=== PATIENT | male | born 1950 | race Caucasian/White ===

== ENCOUNTER 2018-08-12 10:55 | Inpatient (IN) | payer MEDICARE, OTHER ==
[~2018-08-12 10:55] MED LIST: BACITRACIN 50,000 UNIT VIAL IR ONE; DEXAMETHASONE SODIUM PHOSPHATE 10 MG/ML VIAL ONE; FENTANYL CITRATE/PF 250 MCG/5 ML INJ. ONE; GLYCOPYRROLATE 0.2 MG/1 ML 1 ML ONE; HETASTARCH 6% IV ONE; HYDROmorphone HCL/PF 1 MG/ML VIAL ONE; LACTATED RINGERS 1,000 ML IV ONE; LACTATED RINGERS 1,000 ML IV.SOLN IV ONE; LIDOCAINE HCL 2% PF 100MG/5ML VIAL IJ ONE; MIDAZOLAM HCL 2 MG/2 ML VIAL ONE; ONDANSETRON HCL/PF 4 MG/ 2ML VIAL ONE; PHENYLEPHRINE HCL 10 MG/1 ML ONE; PROPOFOL 200 MG/20 ML VIAL IV ONE; ROCURONIUM BROMIDE 10 MG/ML 5ML VIAL ONE; SEVOFLURANE 250 ML LIQUID IH ONE; SODIUM CHLORIDE IV ONE; SUGAMMADEX SODIUM 200 MG/2 ML VIAL IV ONE; ceFAZolin SODIUM 1 GM VIAL ONE; ePHEDrine SULFATE 50 MG/1 ML IVP ONE; fentaNYL CITRATE/PF 100 MCG/2 ML INJ. ONE
[2018-08-12] MEDS ORDERED: HYDROmorphone HCL 2 MG TABLET PO PRN (12:21)
[2018-08-12] MEDS ORDERED: PROMETHAZINE HCL 25 MG in 0.9 % SODIUM CHLORIDE 50 ML IV PRN (12:21)
[2018-08-12] MEDS ORDERED: diphenhydrAMINE HCL 25 MG TABLET PO PRN (12:21)
[2018-08-12] MEDS ORDERED: DIAZEPAM 5 MG TABLET PO PRN (12:21)
[2018-08-12] MEDS ORDERED: ONDANSETRON HCL/PF 4 MG/ 2ML VIAL IVP PRN (12:21)
[2018-08-12 12:36] VITALS: BMI 28.8
--- NOTE | 2018-08-12 12:37 | History and Physical Report ---
History of Present Illnes - History of Present Illness Reason for Visit: Back pain History of Present Illness: Patient underwent Lumbar TDR of L5/S1 today. He has tried numerous other pain relief modalities including discetomy, laminectomy, and RFA as well as pain meds. Surgery went as expected using the anterior approach. Patient feels decent at this time. Tolerating ice chips and asking for pain medicine. Has walked with physical therapy. - Past Medical History Cardiac: HTN, Other (Echo - EF 55% recently.; AAA 3 cm 07-31-18) Gastrointestinal: GERD, Other (H/o colitis) Psych: Anxiety Musculoskeletal: Chronic low back pain, Osteoarthritis - Past Surgical History Past Surgical History: Appendectomy, Other (Cardiac Cath; 2007 L4-L5 discectomy; 2011 lumbar laminectomy; R rotator cuff repair) - Past Family History Mother Family History: Hypertension Father Family History: CAD, Hypertension - Past Social History Smoke: No Alcohol: None Drugs: None Lives: With Family - Health Maintenance Health Maintenance: Cholesterol, Colonoscopy Influenza Vaccine: Current for this Influenza Season Pneumonia Vaccine: Yes Resuscitation Status: Resusciation Status Resuscitation Status Full Code Review of Systems - Review of Systems Constitutional: Weakness. negative: Fever Eyes: negative: pain ENT: negative: Ear Pain Respiratory: negative: Cough Cardiovascular: negative: Chest Pain Gastrointestinal: Nausea (mild). negative: Vomiting Genitourinary: negative: Dysuria Musculoskeletal: Back Pain. negative: Neck Pain Skin: negative: Rash Neurological: Weakness - Medications/Allergies Allergies/Adverse Reactions: Allergies Allergy/AdvReac Type Severity Reaction Status Date / Time prochlorperazine Allergy Verified 08/12/18 12:04 [From Compazine] Home Medications: Home Medications Amitriptyline HCl 1 tab PO HS 08/12/18 Chlorthalidone [Thalitone] 1 tab PO HS 08/12/18 Clonazepam 1 mg PO HS 08/12/18 Hydrocodone/Acetaminophen [[place] 7.5] 1 - 2 tab PO TID PRN 08/12/18 Lisinopril [Zestril] 40 mg PO HS 08/12/18 Omeprazole 20 mg PO 715 08/12/18 Potassium Chloride [Klor-Con M20] 1 tab PO BID 08/12/18 Trazodone HCl [Desyrel] 150 mg PO HS 08/12/18 Exam - Exam Vital Signs: Vital Signs (72 hours) 08/12/18 08/12/18 08/12/18 10:55 11:25 11:55 Temperature 97 F L 97 F L 96.8 F L Pulse Rate [ 79 79 79 Left] Respiratory 16 18 18 Rate Blood Pressure 144/69 128/51 129/63 [Left Arm] O2 Sat by Pulse 92 93 93 Oximetry General: Alert, Oriented to Person, Oriented to Place, Oriented to Time, Cooperative, No acute distress HEENT: Atraumatic, PERRLA, EOMI, Mouth Mucous membr. moist/[place] Neck: Normal Range of Motion Lungs: Clear to auscultation, Normal air movement, Speaks full Sentences Cardiovascular: Regular rate Abdomen: Soft, Other ([place] across lower abdomen C/D/I), Decreased Bowel Sounds Integumentary: Normal Extremities: No edema Neurological: Normal gait, Normal speech, Strength Equal Bilat, Cranial nerves 3-12 NL, Reflexes 2+ Psych/Mental Status: Mental status NL, Mood NL, Appropriate Affect, Intact Judgment Assessment/Plan - Assessment/Plan (1) Chronic low back pain Status: Acute Current Visit: Yes Qualifiers: Back pain laterality: bilateral Sciatica presence: unspecified whether sciatica present Qualified Code(s): M54.5 - Low back pain; G89.29 - Other chronic pain (2) S/P lumbar spinal fusion Status: Acute Current Visit: Yes Plan: Patient will be admitted to Acute Care for routine post op care. He will be kept NPO until his bowel wakes up then diet will be advanced. We will use IV pain management until he can tolerate Po. He was on routine oral pain meds at home so pain control may be difficulty. Heparin for DVT prevention. IVF will be started to prevent dehydration with him being NPO. IS instruction and SCD's as well as physical therapy consult all ordered. Upon arrival to the floor, his O2 SAT was 88%. Improved with application of O2. Encourage ambulation and IS every hour. Will monitor. CBC in the am ordered. (3) HTN (hypertension) Status: Acute Current Visit: Yes Qualifiers: Hypertension type: essential hypertension Qualified Code(s): I10 - Essential (primary) hypertension Plan: Patient did not take his lisinopril this am. Watch BP. (4) GERD (gastroesophageal reflux disease) Status: Chronic Current Visit: No Qualifiers: Esophagitis presence: esophagitis presence not specified Qualified Code(s): K21.9 - Gastro-esophageal reflux disease without esophagitis (5) Anxiety Status: Chronic Current Visit: No VTE Assessment - RISK FACTOR SCORE VTE RISK FACTOR SCORES: AGE OVER 60 YEARS, MAJOR SURGERY/ANESTHESIA TIME > 1 HOUR - RISK VTE MODERATE RISK: SCORE OF 2 (RISK PROXIMAL DVT 2-4%) PROPHYAXIS NEEDED
[2018-08-12] MEDS: oxyCODONE/ACETAMINOPHEN 5/325 TABLET PO PRN ×3 (13:03→23:48)
[2018-08-12] MEDS ORDERED: POTASSIUM CHLOR 20 MEQ D51/2NS 1,000 ML IV ONE (13:04)
[2018-08-12] MEDS: POTASSIUM CHLOR 20 MEQ D51/2NS 1,000 ML IV SCH (13:23)
[2018-08-12] MEDS: OMEPRAZOLE 20 MG PO SCH (17:35)
[2018-08-12] MEDS: traZODone HCL 50 MG TABLET PO SCH (20:23)
[2018-08-12] MEDS: AMITRIPTYLINE HCL 25 MG TABLET PO SCH (20:25)
[2018-08-12] MEDS: clonazePAM 0.5 MG TABLET PO SCH (20:26)
[2018-08-12] MEDS: HEPARIN SODIUM 5000 UNIT/1 ML SQ SCH (20:27)
[2018-08-12] MEDS: CHLORTHALIDONE PO SCH (23:15)
[2018-08-13] MEDS: POTASSIUM CHLOR 20 MEQ D51/2NS 1,000 ML IV SCH ×3 (01:34→21:09)
[2018-08-13] MEDS: OMEPRAZOLE 20 MG PO SCH ×2 (06:06→15:37)
[2018-08-13 07:11] LABS: MONOCYTES % 7.5 % (0.0-11.0)
[2018-08-13 07:12] LABS: BASOPHILS % 0.5 (0.0-1.5); EOSINOPHILS % 0.7 % (0.0-6.8); NEUTROPHILS # 8.6 # k/uL (1.4-7.7)
[2018-08-13] MEDS: LISINOPRIL 10 MG TABLET PO SCH (09:38)
[2018-08-13] MEDS: HEPARIN SODIUM 5000 UNIT/1 ML SQ SCH ×2 (09:38→20:40)
[2018-08-13 11:58] LABS: MEAN CORPUSCULAR HEMOGLOBIN 29.2 pg (28.0-34.0)
--- NOTE | 2018-08-13 12:37 | Discharge Summary ---
Discharge Summary - Discharge Sumary History of Present Illness: Patient underwent Lumbar TDR of L5/S1 today. He has tried numerous other pain relief modalities including discetomy, laminectomy, and RFA as well as pain meds. Surgery went as expected using the anterior approach. Patient feels decent at this time. Tolerating ice chips and asking for pain medicine. Has walked with physical therapy. Condition at Discharge: Stable Home Medications: Ambulatory Orders Medication Instructions Recorded Amitriptyline HCl 1 tab PO HS 08/12/18 Chlorthalidone [Thalitone] 1 tab PO HS 08/12/18 Clonazepam 1 mg PO HS 08/12/18 Hydrocodone/Acetaminophen [[place] 1 - 2 tab PO TID PRN 08/12/18 7.5] Lisinopril [Zestril] 40 mg PO HS 08/12/18 Omeprazole 20 mg PO 715 08/12/18 Potassium Chloride [Klor-Con M20] 1 tab PO BID 08/12/18 Trazodone HCl [Desyrel] 150 mg PO HS 08/12/18 Consultations this Visit: None Procedures this Visit: Other (L5/S1 TDR) Allergies/Adverse Reactions: Allergies Allergy/AdvReac Type Severity Reaction Status Date / Time prochlorperazine Allergy Verified 08/12/18 12:04 [From Compazine] Patient Problems: Current Active Problems Problem Status Onset Chronic low back pain Acute HTN (hypertension) Acute S/P lumbar spinal fusion Acute Discharge Summary: Patient was admitted to Acute Care on 08-12-18 after undergoing a L5/S1 TDR. He did amazingly well. O2 was needed in the immediate post op period to keep SAT's above 90%. He began using his IS and ambulating more. Pain was very tolerable except over night he required some dilaudid because "of the mattress." Bowel sounds returned and diet was advanced. No nausea or vomiting. One dose of valium was given for spasm. Hgb post op was 11.4 down from 15. REpeat in 4 hours was 12.5. Patient requested to go home as he was feeling good and had a ride. AFter discussion with Dr. Fair, patient was discharged home in good condition on 08-13-18. Hospital Course: Discharge Dx: S/P L5/S1 TDR. HTN. Chronic back pain. Disposition - Home
[2018-08-13] MEDS: oxyCODONE/ACETAMINOPHEN 5/325 TABLET PO PRN ×2 (13:38→13:47)
[2018-08-13] MEDS ORDERED: POTASSIUM CHLOR 20 MEQ D51/2NS 1,000 ML IV SCH (14:30)
--- NOTE | 2018-08-13 15:32 | Inpatient Progress Note ---
Subjective - Required Recertification Statement I anticipate X number of days because-include discharge plan: 1 - Review of Systems Subjective: Patient was ready for discharge but developed a 100.3 temp. He felt achy all over. Had been using his incentive spirometer and walking. General: Denies: Chills Pulmonary: Denies: Dyspnea Objective - Exam Vitals and I&O: Vital Signs Temp 100 F H 08/13/18 13:44 Pulse 96 H 08/13/18 14:00 Resp 18 08/13/18 14:00 BP 147/64 08/13/18 13:44 Pulse Ox 96 08/13/18 14:00 Intake & Output 08/12/18 08/13/18 08/13/18 23:59 11:59 23:59 Intake Total 680 120 200 Output Total 600 1600 450 Balance 80 -1480 -250 Weight 99.337 kg Intake: Oral 680 120 200 Output: Urine 600 1600 450 Other: Voiding Method Toilet Toilet Toilet # Voids 0 5 # Bowel Movements 0 0 General: Alert, Oriented to Person, Oriented to Place, Oriented to Time, Cooperative, No acute distress Lungs: Clear to auscultation, Normal air movement, Speaks full Sentences Cardiovascular: Regular rate Abdomen: Normal bowel sounds, Soft - Results Results: Laboratory Results WBC 11.90 K/ul (4.00-12.00) 08/13/18 11:55 RBC 4.20 M/ul (3.90-5.20) 08/13/18 11:55 Hgb 12.3 g/dL (12.0-18.0) 08/13/18 11:55 Hct 37.0 % (37.0-53.0) 08/13/18 11:55 MCV 88.0 fl (80.0-100.0) 08/13/18 11:55 MCH 29.2 pg (28.0-34.0) 08/13/18 11:55 MCHC 33.1 g/dL (30.0-36.0) 08/13/18 11:55 RDW 15.5 % (11.3-14.3) H 08/13/18 11:55 Plt Count 199 K/mm3 (130-400) 08/13/18 11:55 Neut % (Auto) 74.7 % (39.0-79.0) 08/13/18 06:00 Lymph % (Auto) 16.6 % (16.0-50.0) 08/13/18 06:00 [place] % (Auto) 7.5 % (0.0-11.0) 08/13/18 06:00 Eos % (Auto) 0.7 % (0.0-6.8) 08/13/18 06:00 Baso % (Auto) 0.5 (0.0-1.5) 08/13/18 06:00 Neut # (Auto) 8.6 # k/uL (1.4-7.7) H 08/13/18 06:00 Lymph # (Auto) 1.9 # k/uL (0.6-4.0) 08/13/18 06:00 [place] # (Auto) 0.9 # k/uL (0.0-0.9) 08/13/18 06:00 Eos # (Auto) 0.1 # k/uL (0.0-0.6) 08/13/18 06:00 Baso # (Auto) 0.1 # k/uL (0.0-0.5) 08/13/18 06:00 Influenza Type A Ag Negative (NEGATIVE) 08/13/18 14:45 Influenza Type B Ag Negative (NEGATIVE) 08/13/18 14:45 Assessment/Plan - Assessment/Plan (1) Chronic low back pain Status: Acute Current Visit: Yes Qualifiers: Back pain laterality: bilateral Sciatica presence: unspecified whether sciatica present Qualified Code(s): M54.5 - Low back pain; G89.29 - Other chronic pain (2) S/P lumbar spinal fusion Status: Acute Current Visit: Yes (3) HTN (hypertension) Status: Acute Current Visit: Yes Qualifiers: Hypertension type: essential hypertension Qualified Code(s): I10 - Essential (primary) hypertension (4) GERD (gastroesophageal reflux disease) Status: Chronic Current Visit: No Qualifiers: Esophagitis presence: esophagitis presence not specified Qualified Code(s): K21.9 - Gastro-esophageal reflux disease without esophagitis (5) Anxiety Status: Chronic Current Visit: No (6) Fever Status: Acute Current Visit: Yes Qualifiers: Fever type: unspecified Qualified Code(s): R50.9 - Fever, unspecified Plan: INfluenza testing negative but sure acts like it. Will get respiratory viral panel. CBC normal. Abdomen soft - no evidence of any infection. Increase incentive spirometer. Check CXR. Watch closely.
[2018-08-13] MEDS: KETOROLAC TROMETHAMINE 30 MG/1ML VIAL IVP PRN (16:34)
--- NOTE | 2018-08-13 16:48 | Diagnostic Imaging Report ---
SELINA VANN [facility] [address] [facility].[address] [address] Report Submission Date: Aug 13, 2018 4:32:12 PM BOOKING SUPERVISOR Patient Study Name: CLAUDY VINCENT Date: Aug 13, 2018 3:53:52 PM BOOKING SUPERVISOR Modality Type: DX Gender: M Description: CHEST 2VIEW : 54 Institution: [facility] Physician: SELINA VANN CHEST 2VIEW CLINICAL HISTORY: fever post surgery COMPARISON: None FINDINGS: The left hemidiaphragm is elevated. There is linear atelectasis at the lung bases. Otherwise there is no focal consolidation, pleural effusion, or pneumothorax. The cardiomediastinal silhouette is normal. The visible bony thorax is intact. IMPRESSION: Atelectasis. Otherwise no acute pulmonary process. Electronically signed on Aug 13, 2018 4:32:12 PM BOOKING SUPERVISOR by: London BAIG
[2018-08-13] MEDS ORDERED: MAGNESIUM CITRATE 296 ML BOTTLE PO ONE ×2 (18:17→18:23)
[2018-08-13] MEDS ORDERED: DILTIAZEM HCL 25 MG/5 ML VIAL IVP ONE (18:53)
--- NOTE | 2018-08-13 19:27 | Inpatient Progress Note ---
Subjective - Required Recertification Statement I anticipate X number of days because-include discharge plan: 1 - Review of Systems Events since last encounter: Viewed CXR which showed a large amount of stool/gas in the left upper quadrant- RN called and stated patients HR was ranging from 150-180s- EKG was ordered and completed by RT= NSR rate of 130s and KUB ordered. Order to give Mag Citrate. Upon my arrival to room- pt is alert and oriented- sitting up to the side of the bed- drinking Mag Citrate- patient denies any chest pain or shortness of breath- when he laid down he felt a little light headed but states "it's not bad"- subsided in moments. Heart rate climbing to 170s and holding with occasional PVC- Cardizem 20 mg slow IVP given by METAL BENCH PATTERNMAKER-C, 10 minutes later HR is in the 80s. Xray showing Ileus- we will keep patient NPO, Increase IVF, and monitor chemistries. Subjective: Patient states he is feeling much better, he does not feel that he is tachycardic, he denies any chest pain, shortness of breath, palpitations, or jaw/shoulder discomfort. General: Denies: Chills (pt states he has had no more chills this evening), Fatigue HEENT: Denies: Eye Pain, Dysphasia Pulmonary: Denies: Dyspnea, Cough Cardiovascular: Light Headedness (mild ). Denies: Chest Pain, Palpitations (denies feeling like heart is racing) Gastrointestinal: Denies: Nausea, Vomiting, Abdominal Pain Genitourinary: Denies: Dysuria Musculoskeletal: Denies: Back Pain Neurological: Denies: Weakness Objective - Exam Vitals and I&O: Vital Signs Temp 98.8 F 08/13/18 18:00 Pulse 157 H 08/13/18 18:00 Resp 20 08/13/18 18:00 BP 113/77 08/13/18 18:00 Pulse Ox 92 08/13/18 18:00 Intake & Output 08/12/18 08/13/18 08/13/18 23:59 11:59 23:59 Intake Total 680 120 500 Output Total 600 1600 450 Balance 80 -1480 50 Weight 99.337 kg Intake: IV 300 Right Hand 300 Oral 680 120 200 Output: Urine 600 1600 450 Other: Voiding Method Toilet Toilet Toilet # Voids 0 5 # Bowel Movements 0 0 General: Alert, Oriented to Person, Oriented to Place, Oriented to Time, Cooperative, No acute distress HEENT: PERRLA, Mouth Mucous membr. moist/[place], Nose Mucous membr. moist/[place] Neck: Supple Lungs: Clear to auscultation, Normal air movement, Speaks full Sentences Cardiovascular: Tachycardia (rate 170s- gave 20mg Cardizem- HR decreased to 80s) Abdomen: Decreased Bowel Sounds Extremities: Normal pulses, No tenderness/swelling Skin: Normal, [place], Warm, Dry Neurological: Normal gait, Normal speech, Strength Equal Bilat, Sensation intact, Cranial nerves 3-12 NL Psych/Mental Status: Mental status NL, Mood NL, Appropriate Affect, Intact Judgment - Results Results: Laboratory Results WBC 11.90 K/ul (4.00-12.00) 08/13/18 11:55 RBC 4.20 M/ul (3.90-5.20) 08/13/18 11:55 Hgb 12.3 g/dL (12.0-18.0) 08/13/18 11:55 Hct 37.0 % (37.0-53.0) 08/13/18 11:55 MCV 88.0 fl (80.0-100.0) 08/13/18 11:55 MCH 29.2 pg (28.0-34.0) 08/13/18 11:55 MCHC 33.1 g/dL (30.0-36.0) 08/13/18 11:55 RDW 15.5 % (11.3-14.3) H 08/13/18 11:55 Plt Count 199 K/mm3 (130-400) 08/13/18 11:55 Neut % (Auto) 74.7 % (39.0-79.0) 08/13/18 06:00 Lymph % (Auto) 16.6 % (16.0-50.0) 08/13/18 06:00 [place] % (Auto) 7.5 % (0.0-11.0) 08/13/18 06:00 Eos % (Auto) 0.7 % (0.0-6.8) 08/13/18 06:00 Baso % (Auto) 0.5 (0.0-1.5) 08/13/18 06:00 Neut # (Auto) 8.6 # k/uL (1.4-7.7) H 08/13/18 06:00 Lymph # (Auto) 1.9 # k/uL (0.6-4.0) 08/13/18 06:00 [place] # (Auto) 0.9 # k/uL (0.0-0.9) 08/13/18 06:00 Eos # (Auto) 0.1 # k/uL (0.0-0.6) 08/13/18 06:00 Baso # (Auto) 0.1 # k/uL (0.0-0.5) 08/13/18 06:00 Influenza Type A Ag Negative (NEGATIVE) 08/13/18 14:45 Influenza Type B Ag Negative (NEGATIVE) 08/13/18 14:45 Respiratory Virus Ag Negative (NEGATIVE) 08/13/18 15:50 ABDOMEN ONE VIEW: Clinical history: Air in the abdomen Findings/impression: Gas is seen in the visualized bowel loops. Surgical clips are noted in the left lower quadrant. Findings are compatible with ileus. Assessment/Plan - Assessment/Plan (1) Ileus, postoperative Status: Acute Current Visit: Yes Assessment: KUB Clinical history: Air in the abdomen Findings/impression: Gas is seen in the visualized bowel loops. Surgical clips are noted in the left lower quadrant. Findings are compatible with ileus. Plan: Will make patient NPO- will increase IVF- will monitor for output (both urine and stool)- will back order CMP from this mornings labs to get idea of baseline. We will try to decrease pain medication intake as possible- Patient drank bottle of Mag Citrate.
[2018-08-13 19:42] LABS: eGFR (Non-African) > 60
[2018-08-13] MEDS: traZODone HCL 50 MG TABLET PO SCH (20:39)
[2018-08-13] MEDS: AMITRIPTYLINE HCL 25 MG TABLET PO SCH (20:40)
[2018-08-13] MEDS: clonazePAM 0.5 MG TABLET PO SCH (20:40)
[2018-08-13] MEDS: CHLORTHALIDONE PO SCH (21:11)
[2018-08-14] MEDS: POTASSIUM CHLOR 20 MEQ D51/2NS 1,000 ML IV SCH (04:05)
[2018-08-14] MEDS: KETOROLAC TROMETHAMINE 30 MG/1ML VIAL IVP PRN ×2 (04:19→14:03)
[2018-08-14] MEDS: OMEPRAZOLE 20 MG PO SCH ×2 (06:00→16:06)
--- NOTE | 2018-08-14 06:02 | Diagnostic Imaging Report ---
OBDULIA MADSEN [facility] [address] [address] Report Submission Date: Aug 13, 2018 7:17:43 PM BEE TENDER Patient Study Name: CLAUDY VINCENT Date: Aug 13, 2018 6:49:19 PM BEE TENDER Modality Type: DX Gender: M Description: ABDOMEN 1VIEW : 54 Institution: [facility] Physician: OBDULIA MADSEN Single view abdomen Clinical history: Air in the abdomen Findings/impression: Gas is seen in the visualized bowel loops. Surgical clips are noted in the left lower quadrant. Findings are compatible with ileus. Electronically signed on Aug 13, 2018 7:17:43 PM BEE TENDER by: Garrett BAIG
[2018-08-14 07:20] LABS: eGFR (Non-African) > 60
[2018-08-14 07:55] LABS: BASOPHILS % 0.6 (0.0-1.5); EOSINOPHILS % 1.3 % (0.0-6.8); MEAN CORPUSCULAR HEMOGLOBIN 29.1 pg (28.0-34.0); NEUTROPHILS # 8.9 # k/uL (1.4-7.7)
[2018-08-14] MEDS ORDERED: POTASS CHLOR 10 mEq/100mL IVPB 10 MEQ/100 ML ML IV SCH (08:00)
[2018-08-14] MEDS: DEXTROSE IV SCH ×4 (09:07→17:16)
[2018-08-14] MEDS: SOD CHLORD IV SCH ×4 (09:07→17:16)
[2018-08-14] MEDS: POTASSIUM CHLORIDE IV SCH ×4 (09:07→17:16)
[2018-08-14] MEDS: HEPARIN SODIUM 5000 UNIT/1 ML SQ SCH ×2 (09:10→20:36)
[2018-08-14] MEDS: LISINOPRIL 10 MG TABLET PO SCH ×2 (09:45→13:36)
--- NOTE | 2018-08-14 11:31 | Diagnostic Imaging Report ---
<p>Your browser does not support iframes.</p> [facility]MED SURG [facility] [address] [facility].[address] [address] Report Submission Date: Aug 14, 2018 10:31:51 AM INFORMATION BROKER Patient Study Name: CLAUDY VINCENT Date: Aug 14, 2018 9:23:00 AM INFORMATION BROKER Modality Type: DX Gender: M Description: ABDOMEN 1VIEW : 54 Institution: [facility] Physician: [facility]/MED SURG Examination: Abdomen History: FOLLOW UP S/P ILEUS, ABD PAIN Comparison exam: 13 August 2018 Findings: Single view obtained of the abdomen. Air identified within the large bowel. Degree of bowel prominence has decreased since previous examination. Few loops of nondilated small bowel within the central abdomen. Lower pelvic midline surgical Impression: Air within the large and small bowel - degree of bowel prominence has decreased since the 13 August 2018 examination. Electronically signed on Aug 14, 2018 10:31:51 AM INFORMATION BROKER by: Giuseppe BAIG
--- NOTE | 2018-08-14 11:32 | Inpatient Progress Note ---
Subjective - Required Recertification Statement I anticipate X number of days because-include discharge plan: 1 - Review of Systems Subjective: Patient feeling better this morning. Received cardizem IVP last night for tachycardia 180. Xray showed ileus. No more fevers. Passing gas. Has been NPO. Objective - Exam Vitals and I&O: Vital Signs Temp 98.3 F 08/14/18 09:06 Pulse 73 08/14/18 09:06 Resp 18 08/14/18 09:06 BP 119/60 08/14/18 09:06 Pulse Ox 93 08/14/18 10:00 Intake & Output 08/13/18 08/13/18 08/14/18 11:59 23:59 11:59 Intake Total 120 500 Output Total 0619 666 1355 Balance -1480 -450 -1000 Intake: IV 300 Right Hand 300 Oral 120 200 Output: Urine 9823 130 6543 Other: Voiding Method Toilet Toilet Toilet # Voids 5 3 # Bowel Movements 0 General: Alert, Oriented to Person, Oriented to Place, Oriented to Time, Cooperative Lungs: Clear to auscultation, Normal air movement, Speaks full Sentences Cardiovascular: Regular rate Abdomen: Normal bowel sounds, Soft. No: No tenderness (mild) - Results Results: Laboratory Results WBC 12.00 K/ul (4.00-12.00) 08/14/18 05:33 RBC 4.12 M/ul (3.90-5.20) 08/14/18 05:33 Hgb 12.0 g/dL (12.0-18.0) 08/14/18 05:33 Hct 36.3 % (37.0-53.0) L 08/14/18 05:33 MCV 88.0 fl (80.0-100.0) 08/14/18 05:33 MCH 29.1 pg (28.0-34.0) 08/14/18 05:33 MCHC 33.0 g/dL (30.0-36.0) 08/14/18 05:33 RDW 14.5 % (11.3-14.3) H 08/14/18 05:33 Plt Count 214 K/mm3 (130-400) 08/14/18 05:33 Neut % (Auto) 73.8 % (39.0-79.0) 08/14/18 05:33 Lymph % (Auto) 14.3 % (16.0-50.0) L 08/14/18 05:33 [place] % (Auto) 10.0 % (0.0-11.0) 08/14/18 05:33 Eos % (Auto) 1.3 % (0.0-6.8) 08/14/18 05:33 Baso % (Auto) 0.6 (0.0-1.5) 08/14/18 05:33 Neut # (Auto) 8.9 # k/uL (1.4-7.7) H 08/14/18 05:33 Lymph # (Auto) 1.0 # k/uL (0.6-4.0) 08/14/18 05:33 [place] # (Auto) 1.2 # k/uL (0.0-0.9) H 08/14/18 05:33 Eos # (Auto) 0.2 # k/uL (0.0-0.6) 08/14/18 05:33 Baso # (Auto) 0.1 # k/uL (0.0-0.5) 08/14/18 05:33 Sodium 140 mmol/L (136-145) 08/14/18 05:33 Potassium 2.7 mmol/L (3.5-5.1) L 08/14/18 05:33 Chloride 100 mmol/L (98-107) 08/14/18 05:33 Carbon Dioxide 33 mmol/L (22-30) H 08/14/18 05:33 BUN 13 mg/dL (9-20) 08/14/18 05:33 Creatinine 0.98 mg/dL (0.66-1.25) 08/14/18 05:33 Estimated Creat Clear 104 08/14/18 05:33 Est GFR ( Amer) > 60 (60-) 08/14/18 05:33 Est GFR (Non-Af Amer) > 60 (60-) 08/14/18 05:33 Glucose 131 mg/dL (74-106) H 08/14/18 05:33 Calcium 7.3 mg/dL (8.4-10.2) L 08/14/18 05:33 Total Bilirubin 0.3 mg/dL (0.2-1.3) 08/13/18 06:25 AST 33 U/L (15-46) 08/13/18 06:25 ALT 29 U/L (13-69) 08/13/18 06:25 Alkaline Phosphatase 61 U/L (38-126) 08/13/18 06:25 Total Protein 5.4 g/dL (6.3-8.2) L 08/13/18 06:25 Albumin 2.9 g/dL (3.5-5.0) L 08/13/18 06:25 Influenza Type A Ag Negative (NEGATIVE) 08/13/18 14:45 Influenza Type B Ag Negative (NEGATIVE) 08/13/18 14:45 Respiratory Virus Ag Negative (NEGATIVE) 08/13/18 15:50 Assessment/Plan - Assessment/Plan (1) Chronic low back pain Status: Acute Current Visit: Yes Qualifiers: Back pain laterality: bilateral Sciatica presence: unspecified whether sciatica present Qualified Code(s): M54.5 - Low back pain; G89.29 - Other chronic pain (2) S/P lumbar spinal fusion Status: Acute Current Visit: Yes (3) HTN (hypertension) Status: Acute Current Visit: Yes Qualifiers: Hypertension type: essential hypertension Qualified Code(s): I10 - Essential (primary) hypertension (4) GERD (gastroesophageal reflux disease) Status: Chronic Current Visit: No Qualifiers: Esophagitis presence: esophagitis presence not specified Qualified Code(s): K21.9 - Gastro-esophageal reflux disease without esophagitis (5) Anxiety Status: Chronic Current Visit: No (6) Fever Status: Acute Current Visit: Yes Qualifiers: Fever type: unspecified Qualified Code(s): R50.9 - Fever, unspecified Plan: Resolved. Could have been due to ileus. (7) Sinus tachycardia Status: Acute Current Visit: Yes Plan: NSR now. (8) Ileus, postoperative Status: Acute Current Visit: Yes Plan: Xray shows improvement of ileus. Shortly after patient had large BM. Will advance diet slowly as tolerated.
[2018-08-14] MEDS: oxyCODONE/ACETAMINOPHEN 5/325 TABLET PO PRN ×2 (13:03→20:31)
[2018-08-14] MEDS: AMITRIPTYLINE HCL 25 MG TABLET PO SCH (20:32)
[2018-08-14] MEDS: traZODone HCL 50 MG TABLET PO SCH (20:32)
[2018-08-14] MEDS: clonazePAM 0.5 MG TABLET PO SCH (20:36)
[2018-08-15] MEDS: oxyCODONE/ACETAMINOPHEN 5/325 TABLET PO PRN ×2 (01:01→05:41)
[2018-08-15] MEDS: SOD CHLORD IV SCH ×2 (01:32)
[2018-08-15] MEDS: DEXTROSE IV SCH ×2 (01:32)
[2018-08-15] MEDS: POTASSIUM CHLORIDE IV SCH ×2 (01:32)
[2018-08-15] MEDS: OMEPRAZOLE 20 MG PO SCH (05:41)
[2018-08-15 08:22] LABS: eGFR (Non-African) > 60
[2018-08-15] MEDS: LISINOPRIL 10 MG TABLET PO SCH (08:22)
[2018-08-15] MEDS: HEPARIN SODIUM 5000 UNIT/1 ML SQ SCH (08:22)
--- NOTE | 2018-08-15 08:50 | Discharge Summary ---
Discharge Summary - Discharge Sumary History of Present Illness: Patient underwent Lumbar TDR of L5/S1 today. He has tried numerous other pain relief modalities including discetomy, laminectomy, and RFA as well as pain meds. Surgery went as expected using the anterior approach. Patient feels decent at this time. Tolerating ice chips and asking for pain medicine. Has walked with physical therapy. Condition at Discharge: Stable Home Medications: Ambulatory Orders Medication Instructions Recorded Amitriptyline HCl 1 tab PO HS 08/12/18 Chlorthalidone [Thalitone] 1 tab PO HS 08/12/18 Clonazepam 1 mg PO HS 08/12/18 Hydrocodone/Acetaminophen [[place] 1 - 2 tab PO TID PRN 08/12/18 7.5] Lisinopril [Zestril] 40 mg PO HS 08/12/18 Omeprazole 20 mg PO 715 08/12/18 Potassium Chloride [Klor-Con M20] 1 tab PO BID 08/12/18 Trazodone HCl [Desyrel] 150 mg PO HS 08/12/18 Consultations this Visit: None Procedures this Visit: Other (s/p Lumbar TDR of L5/S1) Allergies/Adverse Reactions: Allergies Allergy/AdvReac Type Severity Reaction Status Date / Time prochlorperazine Allergy Verified 08/12/18 12:04 [From Compazine] Patient Problems: Current Active Problems Problem Status Onset Chronic low back pain Acute Fever Acute HTN (hypertension) Acute Ileus, postoperative Acute S/P lumbar spinal fusion Acute Sinus tachycardia Acute Discharge Summary: Patient was admitted s/p Lumbar TDR of L5/S1 from anterior view. He is feeling much better today- he is ready to go home. He states that he has minimal pain- it has greatly improved. He has been using his incentive spirometer and lungs are clear throughout. He has been ambulating frequently- he denies any pain or tenderness to lower extremities. Neurovasculars are intact of all 4 extremities. His abdominal dressing is dry and intact- has not required any dressing changes- pt denies any pain at the incision site. He has been afebrile for > 24 hrs. He denies any shortness of breath, chest pain, palpitations, dizziness, or feelings of lightheadedness. During hospitalization patient developed a temp of 100- he was worked up with labs, CXR, and flu. Patient was treated for an ileus s/p surgery that has greatly improved- patient has had 2 large bowel movements- patient had an episode of tachycardia with rate of 180s- corrected with one IV dose of Cardizem- patient has been sinus rhythm with rates of 70-80s. Potassium has improved with fluids. Patient has no further concerns. He is ready to go home and will keep his follow up appointment. He will continue to use his incentive spirometer while at home. Hospital Course: IV meds, IVF, Incentive spirometer, frequent ambulation, labs, xrays, ekg, telemetry, and SCDs. - Final Diagnosis (1) Ileus, postoperative Problems: Improving- pt states that he is belching and passing gas. He had 2 large bowel movements yesterday- good bowel sounds in all 4 quads Right or Left: Right (2) HTN (hypertension) Problems: stable- will continue home medications Right or Left: Right (3) S/P lumbar spinal fusion Problems: Patient is feeling much better this morning, he has minimal discomfort to the right sciatica but states it is much better- LCTA=he has been using incentive spirometer, denies any leg pain or tenderness- has been up ambulating in the halls and wearing SCDs in bed- dressing is dry and intact (drsg has not needed changed since admission)- pt denies any pain at the incision site. Heart rate is NSR in the 70-80s. Right or Left: Right (4) Sinus tachycardia Problems: HR has been controlled- no tachycardia noted since the - he is feeling much better- denies palpitations, dizziness, or lightheadedness. No chest pain or shortness of breath Right or Left: Right (5) GERD (gastroesophageal reflux disease) Problems: Stable on home meds Right or Left: Right (6) Anxiety Problems: Stable on home meds Right or Left: Right
[2018-08-15 13:21] VITALS: BP 137/70
== END 2018-08-15 13:00 | disposition home or self-care (01) | DRG 30 ==
LOC: UNDOADMIN 10:55 → SOUTH 10:55 → UNDODISIN 08-15 13:00
PROVIDERS: ADMIT Family Medicine; ATTEND Family Medicine
PROC: 0SR40JZ Replacement of Lumbosacral Disc with Synthetic Substitute, Open Approach (ICD-10-PCS; principal; 2018-08-12)
DX: M51.37 Other intervertebral disc degeneration, lumbosacral region (principal); K91.89 Other postprocedural complications and disorders of digestive system; G89.29 Other chronic pain; R50.9 Fever, unspecified; K21.9 Gastro-esophageal reflux disease without esophagitis; F41.9 Anxiety disorder, unspecified; Z98.890 Other specified postprocedural states
CPT/HCPCS: 71046; 74018; 80048; 80053; 85014; 85018; 85025; 87400; 87420; 87486; 87581; 87633; 87798; 93005; 97161; 97165; 97530; 97535; A9270; J0690; J1170; J1644; J1885; J2001; J2250; J2370; J2405; J2704; J3010; J3480; J3490; J7070; J7120; 22857; 99232; 99238; J2307; S1016; S5010

== ENCOUNTER 2018-11-08 07:30 | Day surgery (SDC) | payer MEDICARE, OTHER ==
[2018-11-08] MEDS ORDERED: HYDROmorphone HCL/PF 1 MG/ML VIAL ONE (12:10)
--- NOTE | 2018-12-20 14:04 | Operative Note ---
PREOPERATIVE DIAGNOSIS: Right-sided radiculopathy, L5-S1, status post lumbar total disc replacement arthroplasty. POSTOPERATIVE DIAGNOSIS: Right-sided radiculopathy, L5-S1, status post lumbar total disc replacement arthroplasty. PROCEDURES PERFORMED: 1. Minimally invasive right-sided laminotomy, foraminotomy, and decompression. 2. Intraoperative fluoroscopy and interpretation for needle placement. 3. Use of operating microscope and microsurgical technique. 4. Lumbar epidural steroid injections. SURGEON: Helder Fair Jr., M.D. TRAFFIC OBSERVER: None. ANESTHESIA: General. COMPLICATIONS: None. CONDITION FOLLOWING THE PROCEDURE: Good. OPERATIVE FINDINGS: This patient did well following lumbar total disc replacement arthroplasty, but subsequently developed right radiculopathy. It did not respond to time or two courses of a Medrol Dosepak. It was decided there must be some degree of persistent stenosis within the neural foramen on the right side. Thus, it was elected to have an LFD performed on the right side to decompress the neural foramen and see if this would provide relief. Indications in the recovery room were that the right radiculopathy was successfully and completely relieved. DESCRIPTION OF PROCEDURE: The patient is taken to the operating room and general anesthetic induced. The patient was placed in the prone position and the back was thoroughly scrubbed, sterilely prepped and draped. C-arm fluoroscopy was brought into position to identify the surgical level. A Tuohy needle was then placed adjacent to the paraspinous process of the lumbar spine and driven down to the base of the posterior spinous process. X-rays were taken to confirm vertical direction of the needle and identification of the L5-S1 level for surgical care. When the Touhy needle was found to be placed and replaced in the ideal position, skin kimble were made and the skin was infiltrated with 0.5% Marcaine with epinephrine. A 2-cm transverse incision was then made adjacent to the affected side of the lumbar spine at the affected level. The scalpel blade was then inserted through the subcutaneous tissue and, in a vertical direction, the lumbar fascia was incised through the transverse incision of the skin. Next, the smallest obturator for the cylindrical retractor set was inserted into the skin and through the division of the lumbar fascia down to the palpable inferior aspect of the lamina of the affected level. This was followed by progressive dilators and ended with a cylindrical retractor being placed down to the affected lamina. Its accurate placement was again confirmed radiographically by AP and lateral x-rays intraoperatively. The dilators were then removed, leaving the cylindrical retractor in place at the desired surgical level. High power magnification was then brought into the surgical field and utilized through the cylindrical retractor for the following microsurgical technique application and dissection. The thin muscular cuff remaining over the lamina was removed with a combination of pituitary rongeurs and electrocautery to control hemostasis. Typically, both monopolar and bipolar electrocautery are used for this purpose. The inferior aspect of the lamina then received a [place] retractor and C-arm fluoroscopy was again brought into position to confirm medial placement and visualization of the lamina as well as to reconfirm the affected level is accurately identified for the surgical procedure to follow. Once this was confirmed, a high-speed aric was inserted and the posterior aspect of the lamina and base of the posterior spinous process began to be thinned down until just passing through the anterior aspect of the lamina, thus both visualizing and palpating the thick ligamentum flavum over the dural sac. There was deemed to be adequate exposure over the area affected for surgery and resection with the high-speed aric continued until well above the superior margin of the disc space. A combination of 2- and 3-mm [place] rongeurs were then used to remove the remaining thin wisp of anterior lamina and portions of the posterior spinous process until there was wide exposure in the desired area for surgical care. The ligamentum flavum was then freed from the superior margin which was identified by the initiation of bleeding, marking the origin of the ligamentum flavum superiorly. The ligamentum flavum was from the lamina at this point and reflected inferiorly. [place] rongeurs were then used to resect all of the ligamentum flavum, exposing the dural sac. Using the [place] rongeurs, the foraminotomy was performed on the surgical side until there was adequate room as demonstrated by passage of the [place] probe into the neural foramen. This required a resection of bony spicules, osteophytes, and hypertrophic ligamentum flavum within the spinal canal and neural foramen to confirm adequate relief of the exiting nerve root as well as the nerve root passing by the axilla, destined for next level emergence. A combination of bipolar electrocautery, Gelfoam and thrombin were used to control hemostasis as needed. Attention was directed in the opposite direction toward the opposite side of the spinal canal and ligamentum flavum was resected from the anterior aspect of the lamina on the opposite side to provide additional central decompression. At this point, thrombin was placed directly on the dura and allowed to remain for one minute, and then the excess removed. 40 mg of Depo- Medrol was then instilled over the dura and exposed nerve root. This was followed by a small piece of Gelfoam which covered the laminotomy site, which had been soaked in thrombin. The cylindrical tract was then gradually removed and any area of hemorrhage received electrocautery treatment. The lumbar fascia was then approximated with 0-Vicryl and a subcuticular closure of the subcutaneous and skin was then approximated with Steri-Strips. 15 cc of 0.5% Marcaine with epinephrine was then instilled into the muscular tissue and subcutaneous layer at all four quadrants of the incision to aid in postoperative analgesia. A dressing was applied and the patient was then taken to the recovery room in good condition. Exploration of the right side did not reveal that there was any portion of the total disc replacement arthroplasty previously placed causing posterior protrusion or impingement within the neural foramen. The posterior annulus was quite flat. HELDER FAIR JR., M.D. NITO/wilda (Please copy [facility] provider when applicable) Job #[id number] SAFIA
== END 2018-11-08 15:30 | disposition home or self-care (01) ==
LOC: OPSURG 07:30
PROVIDERS: ATTEND Orthopaedic Surgery
DX: M51.27 Other intervertebral disc displacement, lumbosacral region (principal)
CPT/HCPCS: 22857; J1170; L8699